=== PATIENT | female | born 1990 | race Caucasian/White ===

== ENCOUNTER → 2018-03-04 11:47 | Outpatient (CLI) | payer SELFPAY ==
[2018-03-04 15:08] LABS: Chlamydia Trachomatis by PCR Negative (Negative); Neisserai gonorrhoeae by PCR Negative (Negative); Probe Check PASS; Sample Adequacy Control PASS; Specimen Processing Control PASS
[2018-03-07 10:39] LABS: HPV Reflexed? NOT INDICATED
== END ==
PROVIDERS: Visit Provider Obstetrics & Gynecology
DX: Z12.4 Encounter for screening for malignant neoplasm of cervix (principal); Z11.3 Encounter for screening for infections with a predominantly sexual mode of transmission
CPT/HCPCS: 87491; 87591; 88175; G0145

== ENCOUNTER → 2018-04-06 15:24 | Outpatient (CLI) | payer SELFPAY ==
[2018-04-06 16:23] LABS: Color, Urine Yellow (Yellow); Glucose, Dipstick Normal (Normal); Ketone-Dipstick 5 mg/dl (Negative); Leukocyte Esterase-Dipstick 25 /ul (Negative); Nitrite-Dipstick Negative (Negative); Occult Blood-Urine Negative /ul (Negative); Protein-Dipstick 15 mg/dl (Negative); Specific Gravity, Urine 1.025 (1.002-1.030); Urine Bilirubin Dipstick Negative (Negative); Urine Clarity Turbid (Clear); Urine Urobilinogen Normal (Normal)
[2018-04-06 17:57] LABS: Absolute Neutrophil Count 7.3 X10^3/uL (2.0-7.7); Basophil# 0.03 X10^3/uL; Basophil% 0.3 % (0-1); Eosinophil# 0.11 X10^3/uL; Eosinophils% 1.1 % (0-5); Hematocrit 31.1 % (37-47); Hemoglobin 10.4 g/dl (12.0-15.0); Lymphocyte % 18.1 % (19-41); Mean Corp Hgb Conc 33.4 g/gl (32-36); Mean Corpuscular Hgb 31.5 pg (27.0-32.0); Mean Corpuscular Volume 94.2 fL (81-99); Mean Platelet Vol. 10.3 fl (6.2-12.0); Monocyte# 0.66 X10^3/uL; Monocyte% 6.7 % (0-10); Neutrophil # 7.28 X10^3/uL (2.7-7.7); Neutrophil % 73.4 % (47-70); Platelet Count 252 K/mm3 (150-450); RBC Distribution Width SD 43.3 fl (35.1-43.9); White Blood Count 9.9 K/mm3 (4.4-11.0)
[2018-04-06 18:00] LABS: Thyroid Stim Hormone (TSH) 1.25 uIU/mL (0.358-3.74)
[2018-04-06 18:19] LABS: POSITIVE COUNT NO; POSITIVE DIFFERENTIAL NO; POSITIVE MORPHOLOGY NO
[2018-04-07 09:47] LABS: HIV - WCH Non-Reactive (Nonreactive); Rubella IgG 1.2 IU/mL
[2018-04-08 09:35] LABS: HEPATITIS B SURFACE AG Negative (Negative); Hep C Antibodies <0.1 s/co ratio (0.0-0.9)
[2018-04-09 03:16] LABS: Prenatal RPR NONREACTIVE (NONREACTIVE)
== END ==
PROVIDERS: Visit Provider Obstetrics & Gynecology
DX: Z34.82 Encounter for supervision of other normal pregnancy, second trimester (principal)
CPT/HCPCS: 36415; 81002; 84443; 85025; 86703; 86762; 86803; 87340

== ENCOUNTER → 2018-06-22 09:05 | Outpatient (CLI) | payer OTHER, SELFPAY ==
[2018-06-22 11:02] LABS: Hematocrit 31.7 % (37-47); Hemoglobin 10.5 g/dl (12.0-15.0); Mean Corp Hgb Conc 33.1 g/gl (32-36); Mean Corpuscular Hgb 31.2 pg (27.0-32.0); Mean Corpuscular Volume 94.1 fL (81-99); Mean Platelet Vol. 9.6 fl (6.2-12.0); Platelet Count 244 K/mm3 (150-450); RBC Distribution Width CV 12.6 % (11.6-14.6); RBC Distribution Width SD 42.7 fl (35.1-43.9); Red Blood Count 3.37 M/mm3 (4.2-5.4); White Blood Count 8.8 K/mm3 (4.4-11.0)
[2018-06-22 11:10] LABS: Scan Indicated on CBC? Y/N NO
[2018-06-22 11:18] LABS: Glucose Challenge Gest 1H 50g 93 mg/dL (70-140)
== END ==
PROVIDERS: Visit Provider Obstetrics & Gynecology
DX: Z34.82 Encounter for supervision of other normal pregnancy, second trimester (principal)
CPT/HCPCS: 36415; 82950; 85027

== ENCOUNTER → 2018-08-11 14:00 | Outpatient (CLI) | payer SELFPAY ==
[2015-10-01 15:35] VITALS: BMI 24.2
== END ==
PROVIDERS: Visit Provider Obstetrics & Gynecology
DX: Z36.85 Encounter for antenatal screening for Streptococcus B (principal)
CPT/HCPCS: 87081

== ENCOUNTER 2018-09-10 07:05 | Inpatient (IN) | payer SELFPAY ==
[2018-09-10 07:10] VITALS: BMI 25.9
[2018-09-10] MEDS: Lactated Ringers 1,000 ML 50 ML IV (08:00)
[2018-09-10 08:14] LABS: Hematocrit 31.9 % (37-47); Hemoglobin 10.6 g/dl (12.0-15.0); Mean Corp Hgb Conc 33.2 g/gl (32-36); Mean Corpuscular Hgb 30.8 pg (27.0-32.0); Mean Corpuscular Volume 92.7 fL (81-99); Mean Platelet Vol. 10.9 fl (6.2-12.0); Platelet Count 192 K/mm3 (150-450); RBC Distribution Width CV 12.7 % (11.6-14.6); RBC Distribution Width SD 41.7 fl (35.1-43.9); Red Blood Count 3.44 M/mm3 (4.2-5.4); Scan Indicated on CBC? Y/N NO; White Blood Count 7.4 K/mm3 (4.4-11.0)
[2018-09-10] MEDS: Oxytocin 30 units/NS 500 ml 30 UNITS/500 ML IV.SOLN IV (08:15)
[2018-09-10] MEDS: Oxytocin 30 units/NS 500 ml 30 UNITS/500 ML IV.SOLN 334 UNITS IV (11:40)
--- NOTE | 2018-09-10 12:19 | PCM.DCVAG ---
Discharge Diet: No Restrictions Discharge Activity: May Shower, May Take a Tub Bath Return to work on:: 10/25/18 May resume sexual activity in: 4-6 weeks Additional Activity Instructions:: Nothing in the vagina for 4-6 weeks. You may return to work/school in 6 weeks. Additional Instructions: If you experience any of the following, contact your healthcare provider. Bleeding that soaks a pad every hour for 2 hours Fever 100.4 or higher Unrelieved abdominal pain Problems urinating (including inability to urinate or burning while urinating). Visual changes Severe headache Flu-like symptoms Pain or redness in one of both of your breasts Pain, warmth, tenderness or swelling in your legs, especially the calf area Frequent nausea and vomiting Symptoms of depression or anxiety If you experience any of the following, call 911 or go to the nearest Emergency Room. Chest pain Problems breathing Seizure activity Partial or complete paralysis of a body part, slurred speech, weakness or drooping of the face, or a sudden inability to walk or hold your balance Allergies/Adverse Reactions: Allergies No Known Allergies Allergy (Verified 10/01/15 15:48) Medications to take at Discharge Vits [Prenatabs FA] 1 tablet PO DAILY 10/01/15 Please Follow Up With: Norma Brewster MD - [phone] When: Call to make an appointment with your doctor in 6 weeks. Primary Care Physician: Kalyan Fraire MD [Primary Care Provider] - Test Results: Test results from this visit will be discussed in further detail at your follow-up appointment, if applicable. Proposed Discharge Date: 09/11/18
--- NOTE | 2018-09-10 12:21 | DCINST_ITS ---
Discharge Diet: No Restrictions Discharge Activity: May Shower, May Take a Tub Bath Return to work on:: 10/25/18 May resume sexual activity in: 4-6 weeks Additional Activity Instructions:: Nothing in the vagina for 4-6 weeks. You may return to work/school in 6 weeks. Additional Instructions: If you experience any of the following, contact your healthcare provider. * Bleeding that soaks a pad every hour for 2 hours * Fever 100.4 or higher * Unrelieved abdominal pain * Problems urinating (including inability to urinate or burning while urinating). * Visual changes * Severe headache * Flu-like symptoms * Pain or redness in one of both of your breasts * Pain, warmth, tenderness or swelling in your legs, especially the calf area * Frequent nausea and vomiting * Symptoms of depression or anxiety If you experience any of the following, call 911 or go to the nearest Emergency Room. * Chest pain * Problems breathing * Seizure activity * Partial or complete paralysis of a body part, slurred speech, weakness or drooping of the face, or a sudden inability to walk or hold your balance Allergies/Adverse Reactions: Allergies No Known Allergies Allergy (Verified 10/01/15 15:48) Medications to take at Discharge Vits [Prenatabs FA] 1 tablet PO DAILY 10/01/15 Please Follow Up With: Norma Brewster MD - [phone] When: Call to make an appointment with your doctor in 6 weeks. Primary Care Physician: Kalyan Fraire MD [Primary Care Provider] - Test Results: Test results from this visit will be discussed in further detail at your follow- up appointment, if applicable. Proposed Discharge Date: 09/11/18
--- NOTE | 2018-09-10 12:21 | PCM.OB.VAG ---
Vaginal Delivery Maternal Presentation: Medically Indicated Induction 41 1/7 wk EGA Method of Induction: Pitocin, Amniotomy Amniotic Membrane Rupture Type: Artificial Amniotic Fluid Description: Clear Final RILEY: 09/02/18 Final RILEY Source: US <20 weeks Gestational age: 41 Weeks and 1 Days Date of Procedure: 09/10/18 Pre-Operative Diagnosis: 41 1/7 wk induction postdates Post-Operative Diagnosis: same Surgery/ Procedure Performed: Spontaneous Vaginal Delivery Type of Anesthesia: None - nitrous oxide Description of Procedure: of a smith viable female over intact perineum. Head delivered [place]. Nuchal cord x one reduced. Shoulders delivered easily with maternal expulsive effort and Tl's maneuver. OP and nares bulb suctioned on perineum and after delivery. to maternal abdomen. Cord clamped x two and cut. Ap 8/9 PP exam: no lacerations noted Placenta delivered by spont expulsion 3V cord, normal appearing, intact with trailing membranes. EBL 400 cc Pt and tolerated delivery well. Ray Eric counts correct x two. Presentation: Vertex, [place] Placental Delivery Description: Spontaneous Placenta Disposition: [facility] Cord Vessel Description: 3 Vessels Nuchal Cord Compression: Without compression Cord Entanglement: Around neck x 1, loose Estimated Blood Loss: 400 Infant A gender: Female (1 minute): 8 (5 minute): 9 Episiotomy Description: None Laceration: None
[2018-09-10] MEDS: Ibuprofen 600 MG Tablet PO (14:52)
[2018-09-10 16:00] VITALS: BP 109/68; PULSE 72; RESP 16; TEMP 36.5
[2018-09-10 20:29] VITALS: BP 101/65; PULSE 82; RESP 18; TEMP 36.8
[2018-09-10 23:30] VITALS: BP 117/63; PULSE 81; RESP 18; TEMP 36.8
[2018-09-11 03:50] VITALS: BP 103/66; PULSE 71; RESP 18; TEMP 36.5
[2018-09-11 08:31] VITALS: BP 104/65; PULSE 78; RESP 16; TEMP 36.7; O2SAT 96
--- NOTE | 2018-09-11 08:31 | PCM.PN.OB ---
Subjective: Has cramping with nursing, alleviated with pain medication. OOB with no complaints. Denies heavy lochia. She is and infant nursing well. Objective: avss - Physical Exam General: Alert, Oriented x3, Cooperative, No apparent distress HEENT: Atraumatic, Normocephalic Lungs: Clear to auscultation, Normal air movement Cardiovascular: Regular rate, Regular Rhythm, Normal S1, Normal S2 Abdomen: Soft, Non Tender, Non-Distended, - - Fundus firm and nontender Neurological: Neuro grossly intact Psych/Mental Status: Normal Affect, Appropriate, Alert and oriented to time, place, person, mood and affect Vital Signs Temp Pulse Resp BP 97.7 F L 71 18 103/66 09/11/18 03:50 09/11/18 03:50 09/11/18 03:50 09/11/18 03:50 Oxygen Delivery Method Room Air Weight: 68.6 kg Body Mass Index (BMI) 25.9 Intake and Output for Last 24 Hours 09/09/18 09/10/18 09/11/18 23:59 23:59 23:59 Intake Total 500 / 500 Output Total 1400 / 1400 Balance -900 / -900 Laboratory Tests Past 24 Hrs 09/10/18 08:00 Blood Type B POSITIVE Antibody Screen NEGATIVE Medical Necessity - Tobacco Use Smoking Status: Never smoker Assessment/Plan 28yo PPD#1 s/p doing well. -B positive, Rubella nonimmune - declines Rubella vaccine - -Routine care -Plan for d/c home later today if infant cleared
[2018-09-11] MEDS: Ibuprofen 600 MG Tablet PO (08:57)
[2018-09-11] MEDS: Prenatal Vits Tablet 1 TABLET PO (08:58)
[2018-09-11 12:00] VITALS: BP 98/59; PULSE 82; RESP 16; TEMP 37.2; O2SAT 95
[2018-09-11 16:31] VITALS: BP 98/56; PULSE 81; RESP 16; TEMP 36.9; O2SAT 97
== END 2018-09-11 17:15 | disposition home or self-care (01) | DRG 807 ==
PROVIDERS: Admitting Provider Obstetrics & Gynecology; Referring Provider Obstetrics & Gynecology; Visit Provider Obstetrics & Gynecology
DX: O48.0 Post-term pregnancy (principal); Z37.0 Single live birth; O35.3XX0 Maternal care for (suspected) damage to fetus from viral disease in mother, not applicable or unspecified; O69.81X0 Labor and delivery complicated by cord around neck, without compression, not applicable or unspecified; Z3A.41 41 weeks gestation of pregnancy
CPT/HCPCS: 59050; 85027; 86850; 86900; 99218; J7120; G0378

== ENCOUNTER → 2020-05-22 10:29 | Outpatient (CLI) | payer SELFPAY ==
[2020-05-22 11:55] LABS: Absolute Lymphocyte Count 1.88 X10^3/uL (0.83-4.51); Absolute Neutrophil Count 6.4 X10^3/uL (2.0-7.7); Basophil# 0.04 X10^3/uL; Basophil% 0.4 % (0-1); Eosinophils% 1.1 % (0-5); Hematocrit 32.6 % (37-47); Lymphocyte # 1.88 X10^3/ul (4.0); Lymphocyte % 20.6 % (19-41); Mean Corp Hgb Conc 33.7 g/dL (32-36); Mean Corpuscular Hgb 33.2 pg (27.0-32.0); Mean Corpuscular Volume 98.5 fL (81-99); Monocyte# 0.63 X10^3/uL; Monocyte% 6.9 % (0-10); NRBC Flagged by Analyzer 0 % (0-5); Neutrophil # 6.43 X10^3/uL (2.7-7.7); Neutrophil % 70.5 % (47-70); Platelet Count 231 K/mm3 (150-450); RBC Distribution Width CV 13.3 % (11.6-14.6); RBC Distribution Width SD 47.7 fl (35.1-43.9); Red Blood Count 3.31 M/mm3 (4.2-5.4); White Blood Count 9.1 K/mm3 (4.4-11.0)
[2020-05-22 12:09] LABS: Color, Urine Straw (Yellow); Glucose, Dipstick Normal (Normal); Ketone-Dipstick Negative (Negative); Leukocyte Esterase-Dipstick Negative /ul (Negative); Nitrite-Dipstick Negative (Negative); Occult Blood-Urine Negative /ul (Negative); Protein-Dipstick Negative (Negative); Urine Bilirubin Dipstick Negative (Negative); Urine Clarity Clear (Clear); Urine Urobilinogen Normal (Normal)
[2020-05-22 12:41] LABS: HIV - WCH Non-Reactive (Nonreactive); Hepatitis B Surface Antigen Non-Reactive (Nonreactive); Hepatitis C Antibody Non-Reactive (Nonreactive); Rubella IgG 0.6 IU/mL
[2020-05-22 14:36] LABS: Thyroid Stim Hormone (TSH) 1.06 uIU/mL (0.358-3.74)
[2020-05-24 03:06] LABS: Chlamydia By Nucleic Acid AMP Negative (Negative)
[2020-05-24 06:28] LABS: Prenatal RPR NONREACTIVE (NONREACTIVE)
[2020-05-24 06:31] LABS: Gonococcus By Nucleic Acid AMP Negative (Negative)
== END ==
PROVIDERS: Visit Provider Obstetrics & Gynecology
DX: Z34.81 Encounter for supervision of other normal pregnancy, first trimester (principal)
CPT/HCPCS: 36415; 81002; 84443; 85025; 86703; 86762; 86803; 87340; 87491; 87591

== ENCOUNTER → 2020-07-17 09:15 | Outpatient (CLI) | payer SELFPAY ==
[2020-07-17 09:46] LABS: Hematocrit 32.8 % (37-47); Hemoglobin 10.6 g/dL (12.0-15.0); Mean Corp Hgb Conc 32.3 g/dL (32-36); Mean Corpuscular Hgb 31.5 pg (27.0-32.0); Mean Corpuscular Volume 97.3 fL (81-99); Mean Platelet Vol. 9.4 fl (6.2-12.0); Platelet Count 189 K/mm3 (150-450); RBC Distribution Width CV 12.3 % (11.6-14.6); RBC Distribution Width SD 44.1 fl (35.1-43.9); Red Blood Count 3.37 M/mm3 (4.2-5.4); White Blood Count 8.3 K/mm3 (4.4-11.0)
[2020-07-17 09:50] LABS: Glucose Challenge Gest 1H 50g 86 mg/dL (70-140)
== END ==
PROVIDERS: Visit Provider Obstetrics & Gynecology
DX: Z34.82 Encounter for supervision of other normal pregnancy, second trimester (principal)
CPT/HCPCS: 36415; 82950; 85027

== ENCOUNTER → 2020-09-18 | Outpatient (CLI) | payer OTHER, SELFPAY | END | disposition home or self-care (01) | PROVIDERS: Visit Provider Obstetrics & Gynecology | DX: Z36.85 Encounter for antenatal screening for Streptococcus B (principal) | CPT/HCPCS: 87081 ==

== ENCOUNTER 2020-10-10 13:45 | Inpatient (IN) | payer SELFPAY, OTHER ==
[2020-10-10] VITALS (16 sets, daily range): BP systolic 104–128; BP diastolic 55–82; PULSE 69–88; RESP 16; TEMP 36.7–37.7; O2SAT 97–98; BMI 28.8
[2020-10-10] MEDS: Lactated Ringers 1,000 ML 50 ML IV (14:30)
[2020-10-10 14:40] LABS: Absolute Lymphocyte Count 1.54 X10^3/uL (0.83-4.51); Absolute Neutrophil Count 7.4 X10^3/uL (2.0-7.7); Basophil# 0.04 X10^3/uL; Basophil% 0.4 % (0-1); Eosinophil# 0.04 X10^3/uL; Eosinophils% 0.4 % (0-5); Hematocrit 33.2 % (37-47); Hemoglobin 11.5 g/dL (12.0-15.0); Lymphocyte # 1.54 X10^3/ul (4.0); Lymphocyte % 15.8 % (19-41); Mean Corp Hgb Conc 34.6 g/dL (32-36); Mean Corpuscular Hgb 32.4 pg (27.0-32.0); Mean Corpuscular Volume 93.5 fL (81-99); Mean Platelet Vol. 9.9 fl (6.2-12.0); Monocyte# 0.67 X10^3/uL; Monocyte% 6.9 % (0-10); NRBC Flagged by Analyzer 0 % (0-5); Platelet Count 199 K/mm3 (150-450); RBC Distribution Width CV 12.7 % (11.6-14.6); RBC Distribution Width SD 43.9 fl (35.1-43.9); Red Blood Count 3.55 M/mm3 (4.2-5.4); White Blood Count 9.7 K/mm3 (4.4-11.0)
[2020-10-10] MEDS: Oxytocin 30 units/NS 500 ml 30 UNITS/500 ML IV.SOLN 334 UNITS IV (18:10)
--- NOTE | 2020-10-10 18:24 | PCM.HP.BLA ---
History and Physical Date of Admission: 10/10/20 [facility] [place] AND PHYSICAL (10/10/2020) Name: MARY PERDOMOHER History of This : This is a 30-year-old G4, P3 who presents to labor and delivery in active labor at 40 weeks gestation. care has been uneventful. OB Physician: KAY 's Physician: [facility] ...................................................................... : 1990 Age: 30 Address: [address] [place] [address] Phone: [phone] Insurance Carrier: Emergency Contact: GISELE PERDOMO [phone] ...................................................................... Final RILEY: 10/10/20 By Ultrasound: PARITY: (G-Total Pregnancies P-Fullterm,Premature,Induced AB,Spont AB, Ectopics, Multiple,Living) RILEY CONFIRMATION: By LMP: 01/04/20 Initial Exam: 10/11/20 By First Ultrasound Exam: 10/10/20 Final RILEY: 10/10/20 OB PROBLEM LIST: AFP/CF/SMA screening declined EPDS on 05/22/2020 = 3 FOB with h/o heart defect, congenital No surgical intervention Late to care Prefers no epidural, wants Nitrous Oxide Rubella NONIMMUNE ALLERGIES: No Known Drug Allergies MEDICATIONS: ferrous sulfate 325 mg (65 mg iron) tablet 1 PO QD 28 mg iron-800 mcg tablet 1 daily SOCIAL HISTORY: Smoking - Never Alcohol Use - denies drinking Diet - moderate, balanced diet, caffeine < 2 drinks per day and water intake tries for 6-8 glasses daily. Lifestyle - low stress lifestyle and Exercise - Active in home, garden, mowing. Enc to walk 20min daily. Employer - [employer] Job Description - Illicit Drug Use - denies use of street drugs Sexual Activity - Residence - lives with Place [place] - [place] Spouse-Sig Other Name - Gisele Spouse-Sig Other Occupation - self employed installs catie. Spouse-Sig Other Phone No - [phone] Children Name(s) - Kyle Cortes (LORETTA)Susu PRIOR DELIVERY HISTORY DEL DATE GEST LAB WT LB WT OZ TYPE ANES LABOR TX Oct 06 40 12 7 11 Vag None No May 04 40 8 6 15 Vag None No Sep 07 41 4 7 11 Vag Epidural No ANTEPARTUM FLOW CHART VISIT GE RTC FU F F WY U U DATE WK MD WKS HT PN HR M SS BP ED WT WY GL D EF ST __ ____ ___ __ __ ___ __ __ __ ___ __ __ __ ___ __ 12 Sep JM 1 38 V + + 130/70 0 152 - - 2 50 -3 05 Sep JM 1 37 V + + 102/68 0 151 tr - Aug JM 1 36 V + + 100/74 0 153 - - Aug JM 2 34 V + + 112/68 0 148 tr ne Jul JM 2 32 V + + 100/60 0 147 - - 27 Jul 17 JM 2 27 - + + 92/58 0 142 - - May 23 CM 4 24 + + 122/68 0 139 - - ANTEPARTUM NOTE(S): Oct 02 2020: reviewed FM, SROM, and labor Sep 25 2020: feeling well Sep 18 2020: GBS and LARC Sep 03 2020: Aug 20 2020: see note Jul 17 2020: Jun 19 2020: COMPREHENSIVE ANTEPARTUM NOTE(S): Oct 02 2020: Interested in cervix ck, membranes stripped. Feeling more pressure and contractions. Reviewed importance of keeping track of mvmt. Labor and SROM reviewed. LMT Oct 02 2020: 38wk, 2cm. Sweeped membranes. Discussed 41wk induction, will consider scheduling at next visit. MEIR Sep 26 2020: H taken to OB. tkg Sep 25 2020: Reviewed FM, SROM, and labor. Discomforts of late discussed. She reports feeling well and without concerns today. LMT Sep 25 2020: 37wk, GBS neg. Sister is Jolene who is 16wks . No complaints. Expectant management. Sep 18 2020: Marie is here for a PNV. Good FM. No edema present. No concerns expressed at this time. GBS and LARC today. GBS consent signed. LARC reviewed and declined. MK Sep 18 2020: 36wk, GBS collected today. JM Sep 03 2020: Chelly is here for PNV. States she is doing really well with no complaints. Eating well. Good FM. No edema noted. Urine dipped tr and neg. LSS Sep 03 2020: 34wk, for GBS at next visit. JM Aug 20 2020: Doing well, no complaints. Encouraged Tdap and Influenza vaccine. Reviewed FM, PTL. All prior pregnancies were term deliveries. Asking about nitrous at the L and D. LMT Aug 20 2020: 32wk, 1hr GTT wnl. JM Jul 17 2020: Marie is here for her PNV. Doing well. Good FM. No concerns or complaints expressed today. She had 1 hr GCT drawn today. Medications and allergies reviewed today. LJW Jul 17 2020: 27wk, for 1hr GTT today. MEIR Jun 19 2020: Doing well. Good FM. Voicing no concerns. Glucola bottle and instructions given to be done next visit. kbm Jun 19 2020: 23/6w visit. Denies LOF, VB, contractions. +FM. No concerns today. FOB had hx of heart murmur that resolved on its own, no interventions. No need for ECHO. May 29 2020: TELEHEALTH NOB VISIT. 25 MINUTES IN LENGTH. Marie is a 29 year old with an RILEY of 10/01/2020, current GA is 20 w 6 d. 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 She reports that she is feeling well, and that the nausea she experienced in her first trimester has resolved. She states that she feels FM. Marie is an established patient with this practice, and has no questions about office practice patterns. 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 Emergencies/danger signs, how to contact the office during/after hours, reporting a suspected UTI, round ligament pain, and common OTC medications for minor ailments approved/not approved for use during reviewed. She is a life long non-smoker, and denies use of drugs or ETOH. AFP/CF/SMA screening declined. Marie denies a h/o depression/anxiety, and her EPDS on 05/22/2020 = 3. She shares that the summer has been a little stressful, mostly because her has become a aircraft systems repairer in their [employer]. Marie takes an OTC vitamin, and tolerates this well. She takes her children on walks every day, and works around her house/yard. lifting restrictions discussed. She states that she tries to eat an over all well-balanced diet, is working on increasing her water intake, and only occasionally consumes caffeine. water/dietary/caloric needs discussed, as well as recommended weight gain,limiting empty calories, and food safety during . Marie plans to deliver at [facility], she prefers not to have an epidural, but would like Nitrous Oxide, and she will breastfeed. She states that she understands all information provided during NOB visit, and has no questions following same. AW New May 22 2020: Marie is here for missed menses. LMP 01/04/20. UPT in office positive she is 19w 6 d with RILEY of 10/10/20. PAP 2018 WNL. pkt reviewed and given today. NOB pkt reviewed and given today. Medications and allergies reviewed today. No questions or concerns expressed today. LJW May 22 2020: Missed menses today with +UPT. LMP known of 01-04-20. This would give her a GA 19w6d and RILEY 10-11-20. Now a (f,m,f,f*). Kyle Cortes and Susu. Had her last two deliveries with Dr. Watts Reoriented to practice with 2 new MDs present. CNM care with OB collaboration discussed. Head to toe negative. Will get Comp US today with NOB labs. Last pap 2018, due 2020 PP. NOB paperwork filled out today, declining genetic screening and EPDS=3. US Today reveals RILEY consistent with LMP. Female fetus, AGA at EFW 52nd%, all anatomy visualized and WNL. Reviewed [facility] Covid protocols and will need a negative covid test to be able to use nitrous oxide which is her pain management option of choice. Has no other questions or concerns. To get NOB RN call scheduled and to return in 4 weeks for routine PNV. - REVIEW OF SYSTEMS: GENERAL - Denies fever, or chills SKIN - Denies rash, new skin lesions, or change in moles EYES - Denies blurred vision, or change in visual acuity EARS - Denies ear pain, or difficulty hearing NOSE - Denies nasal congestion, discharge, or bleeding MOUTH - Denies sore throat, or difficulty swallowing NECK - Denies pain or swelling RESPIRATORY - Denies shortness of breath, cough, wheezing CARDIOVASCULAR - Denies palpitations, chest pain, orthopnea, PND, peripheral edema, syncope or claudication GASTROINTESTINAL - Denies nausea, vomiting, diarrhea, constipation, Denies abdominal pain, melena and or bright red blood GENITOURINARY - Denies dysuria, frequency of urination, urgency, or hesitancy MUSCULOSKELETAL - Denies joint or muscle pain, or back pain NEUROLOGICAL - Denies localized numbness, weakness, or tingling PSYCHIATRIC - Denies depression, anxiety, substance abuse or suicide attempts ENDOCRINE - Denies heat or cold intolerance, weight loss or gain, increasing thirst HEMATO-IMMUNOLOGIC - Denies easy bruising, bleeding, oral ulcerations or recurrent infections GENETICS SCREENING: Age 35+ years: No Thalassemia: No Neural Tube Defect: No Down Syndrome: No LORENZO-SACHS: No Sickle Cell Disease: No Hemophilia: No Musc. Dystrophy: No Cystic Fibrosis: No-declines screening [place] Chorea: No Mental Retardation: No Fragile X: No Other genetic: No Other defects: No SABs/still births: No Drugs since LMP: No INFECTION HISTORY: High risk AIDS: No High risk Hepatitis: No Exposed to TB: No Exposed to Herpes: No Rash/viral illness since LMP: No History of STD: No MENSTRUAL HISTORY: *Menarche (Age Onset): 14* PAST SUMMARY: PARITY: 1. Total Pregnancies............ 4 2. Full Term Pregnancies........ 3 3. Premature.................... 0 4. Abortions - Induced.......... 0 5. Abortions - Spontaneous...... 0 6. Ectopics..................... 0 7. Multiple Births.............. 0 8. Living Children.............. 3 PAST #1: Date of :.................. 05/11/14 Gestation Weeks:................ 40 Length of labor(hours):......... 8 Sex:............................ F Weight-lbs:............... 6 Weight-oz:................ 15 Type of Delivery:............... Vag Type of Anesthesia:............. None Place of Delivery:.............. [facility] Treatment of Labor?:.... No Comment: ANEMIA PAST #2: Date of :.................. 10/01/15 Gestation Weeks:................ 40 Length of labor(hours):......... 12 Sex:............................ M Weight-lbs:............... 7 Weight-oz:................ 11 Type of Delivery:............... Vag Type of Anesthesia:............. None Place of Delivery:.............. [facility] Treatment of Labor?:.... No Comment: 3 H AT THE HOSPITAL. PAST #3: Date of :.................. 09/10/18 Gestation Weeks:................ 41 Length of labor(hours):......... 4 Sex:............................ F Weight-lbs:............... 7 Weight-oz:................ 11 Type of Delivery:............... Vag Type of Anesthesia:............. Epidural Place of Delivery:.............. [facility] Treatment of Labor?:.... No Comment: IOL PHYSICAL EXAMINATION General Appearence: 30 yo female in no acute distress Vital Signs: AF, VSS Heart: RRR without rubs or gallops Lungs: CTA x 2 Breasts: deferred Abdomen: gravid Pelvis: Cervix: 6 cm, 60% effaced intact Presentation: cephalic Station: -2 Fetus: Size: AGA Movement: present Heart: present Labs for : MARIE PERDOMO since 01/14/2020 ORDER DATEIN DESCRIPTION VALUE UNITS RANGE A+ COMMENT TYPE AND SCREEN 10/10/20 Reason for Type AND Screen/Red Cells: Labor [facility]~[address] [place], [address]~ BLOOD TYPE GEL B POSITIVE N ANTIBODY SCREEN NEGATIVE N Reviewed by LILLY CBC W/DIFF, AUTOMATED 10/10/20 NOTE Original Ordering Provider: Branden Matthew WBC 9.7 K/mm3 4.4-11.0 RBC 3.55 M/mm3 4.2-5.4 L HGB 11.5 g/dL 12.0-15.0 L HCT 33.2 % 37-47 L MCV 93.5 fL 81-99 MCH 32.4 pg 27.0-32.0 H MCHC 34.6 g/dL 32-36 RDW CV 12.7 % 11.6-14.6 RDW SD 43.9 fl 35.1-43.9 PLT 199 K/mm3 150-450 MPV 9.9 fl 6.2-12.0 NEUT% 76.0 % 47-70 H LY% 15.8 % 19-41 L MONO% 6.9 % 0-10 EO% 0.4 % 0-5 BASO% 0.4 % 0-1 IM GRAN % 0.500 % 0.0-0.9 IG% - Immature Granulocytes (promyelocytes, myelocytes and metamyelocytes) > 1% indicates that a LEFT SHIFT is Present. ABSOLUTE NEUT 7.4 X10 3/uL 2.0-7.7 ABSOLUTE LYMPH 1.54 X10 3/uL 0.83-4.51 NRBC, FLAGGED 0 % 0-5 Reviewed by LILLY COVID 19 AG RAPID (RN COLLECT) 10/10/20 NOTE Original Ordering Provider: Branden Matthew COVID AG -RAPID *Negative results from patients with symptom onset beyond five days should be treated as presumptive and confirmed by a molecular assay if clinically necessary. Negative results should not be used as the sole basis for treatment or for patient management. *Positive results do not differentiate between SARS-CoV and SARS-CoV-2. If differentation of the specific SARS virus is desired an additional sample and an additional order is required. * This test has not been FDA cleared or approved; the test has been authorized by FDA under an Emergency Use Authorization (EAU) for use by laboratories certified under CLIA that meet the requirements to perform moderate, high, or waived complexity tests. Normal Reference Range: Negative Testing performed on Remote[employer] analyzer VANDANA (lateral flow immunofluorescent assay) SARS-CoV-2 (COVID 19) Negative CULTURE, GROUP B STREPTOCOCCUS 09/18/20 NOTE Original Ordering Provider: Lilly Perdomo ALFIE Culture Group B Beta Streptococcus is not isolated. Reviewed by LILLY GLUCOSE CHALLENGE GEST 1H 50G 07/17/20 NOTE Original Ordering Provider: Lilly Perdomo GLU GEST 50G 1H 86 mg/dL 70-140 Reviewed by LILLY CBC-COMPLETE BLOOD CNT NO DIFF 07/17/20 NOTE Original Ordering Provider: Lilly Perdomo WBC 8.3 K/mm3 4.4-11.0 RBC 3.37 M/mm3 4.2-5.4 L HGB 10.6 g/dL 12.0-15.0 L HCT 32.8 % 37-47 L MCV 97.3 fL 81-99 MCH 31.5 pg 27.0-32.0 MCHC 32.3 g/dL 32-36 RDW CV 12.3 % 11.6-14.6 RDW SD 44.1 fl 35.1-43.9 H PLT 189 K/mm3 150-450 MPV 9.4 fl 6.2-12.0 Reviewed by LILLY CHLAMYDIA/GC SUZANNE APTIMA 05/22/20 NOTE Original Ordering Provider: MICKIE RILEYAMY,NUC ACID Negative Negative GC BY NUC ACID Negative Negative Performed at: = - [facility] [address] [id number] Bit Sander: Mari Garcia MD, Phone: [phone] Reviewed by RALPH RPR 05/22/20 NOTE Original Ordering Provider: MICKIE Hope RPR NONREACTIVE NONREACTIVE Reviewed by RALPH THYROID STIM HORMONE (TSH) 05/22/20 NOTE Original Ordering Provider: MICKIE Hope TSH 1.06 uIU/mL 0.358-3.74 Reviewed by RALPH T AND S-NO CHARGE W/PNP 05/22/20 Reason for Type AND Screen/Red Cells: Surgery? N [facility]~[address] [place], [address]~ BLOOD TYPE GEL B POSITIVE N AB SCREEN GEL NEGATIVE N Reviewed by RALPH HEPATITIS C ANTIBODY 05/22/20 NOTE Original Ordering Provider: MICKIE Hope HEPATITIS C AB Non-Reactive Nonreactive Non Reactive: < 0.8 Equivocal: >/= 0.8 to < 1.0 Reactive: >/= 1.0 The CDC recommends that a reactive/equivocal HCV antibody result be followed up by the HCV Nucleic Acid Amplification test ([id number]) Reviewed by RALPH HEPATITIS B SURFACE ANTIGEN 05/22/20 NOTE Original Ordering Provider: MICKIE Hope HEPB SURFACE AG Non-Reactive Nonreactive Reviewed by RALPH HIV - H 05/22/20 NOTE Original Ordering Provider: MICKIE Hope HIV - [facility] Non-Reactive Nonreactive Reviewed by RALPH RUBELLA IGG 05/22/20 NOTE Original Ordering Provider: MICKIE Hope RUBELLA IGG 0.6 IU/mL Antibody results Interpretation of Immune Status < 5 IU/ml Presumed Non-immune 5 - < 10 IU/ml Equivocal > or = 10 IU/ml Presumed Immune Reviewed by RALPH URINALYSIS, ROUTINE (DIPSTICK) 05/22/20 NOTE Original Ordering Provider: MICKIE Hope COLOR Straw Yellow CLARITY Clear Clear GLUCOSE, UR Normal mg/dl Normal BILIRUBIN URINE Negative mg/dL Negative KETONE UR Negative mg/dl Negative SP.GR. DIPSTX 1.010 1.002-1.030 PH UR 8.0 5.0 - 8.0 PROT DIPSTX Negative mg/dl Negative UROBILI Normal mg/dl Normal NITRITE UR Negative Negative OCCULT BLOOD-UR Negative /ul Negative LEUK ESTERASE Negative /ul Negative Reviewed by RALPH CBC W/DIFF, AUTOMATED 05/22/20 NOTE Original Ordering Provider: MICKIE Hope WBC 9.1 K/mm3 4.4-11.0 RBC 3.31 M/mm3 4.2-5.4 L HGB 11.0 g/dL 12.0-15.0 L HCT 32.6 % 37-47 L MCV 98.5 fL 81-99 MCH 33.2 pg 27.0-32.0 H MCHC 33.7 g/dL 32-36 RDW CV 13.3 % 11.6-14.6 RDW SD 47.7 fl 35.1-43.9 H PLT 231 K/mm3 150-450 MPV 10.0 fl 6.2-12.0 NEUT% 70.5 % 47-70 H LY% 20.6 % 19-41 MONO% 6.9 % 0-10 EO% 1.1 % 0-5 BASO% 0.4 % 0-1 IM GRAN % 0.500 % 0.0-0.9 IG% - Immature Granulocytes (promyelocytes, myelocytes and metamyelocytes) > 1% indicates that a LEFT SHIFT is Present. ABSOLUTE NEUT 6.4 X10 3/uL 2.0-7.7 ABSOLUTE LYMPH 1.88 X10 3/uL 0.83-4.51 NRBC, FLAGGED 0 % 0-5 Reviewed by RALPH Impression /Plan: 40-week intrauterine in labor. Plan rupture of membranes. Preparations in progress for delivery.
--- NOTE | 2020-10-10 18:26 | OP.PCM_ITS ---
Vaginal Delivery Maternal Presentation: Active Labor Amniotic Membrane Rupture Type: Artificial Amniotic Fluid Description: Clear Final RILEY: 10/10/20 Gestational age: 40 Weeks and 0 Days Date of Procedure: 10/10/20 Pre-Operative Diagnosis: IUP Post-Operative Diagnosis: IUP Surgery/ Procedure Performed: Spontaneous Vaginal Delivery Type of Anesthesia: None Description of Procedure: Spontaneous vaginal delivery of a viable female infant with Apgars of 9/9 from an occiput anterior presentation with clear amniotic fluid and normal three- vessel placenta. No episiotomy or laceration. Banjo curette used x3 gentle passes to remove adherent placenta. Ancef 1 g IV will be given. Sponges okay. Delivery physician: Branden Matthew MD. Presentation: Vertex Placental Delivery Description: Spontaneous Placenta Disposition: [facility] Cord Vessel Description: 3 Vessels Cord Entanglement: None Estimated Blood Loss: 250 cc Infant A gender: Female (1 minute): 9 (5 minute): 9 Episiotomy Description: None Laceration: None Medications given after delivery: IV Pitocin Complications: None
--- NOTE | 2020-10-10 18:29 | DCINST_ITS ---
<Branden Matthew - Last Filed: 10/10/20 18:29> Discharge Diet: No Restrictions Discharge Activity: May Shower, May Take a Tub Bath May resume sexual activity in: 4-6 weeks Additional Activity Instructions:: Nothing in the vagina for 4-6 weeks. You may return to work/school in 6 weeks. Call your doctor if you observe: Fever of 101 or Higher, Inability to urinate, Inability to have a bowel movement, Using more than one pad per hour Additional Instructions: If you experience any of the following, contact your healthcare provider. * Bleeding that soaks a pad every hour for 2 hours * Fever 100.4 or higher * Unrelieved incision or abdominal pain * Swelling, redness, discharge or bleeding from your incision or episiotomy site * Your incision begins to separate * Problems urinating (including inability to urinate or burning while urinating). * Visual changes * Severe headache * Flu-like symptoms * Pain or redness in one of both of your breasts * Pain, warmth, tenderness or swelling in your legs, especially the calf area * Frequent nausea and vomiting * Symptoms of depression or anxiety If you experience any of the following, call 911 or go to the nearest Emergency Room. * Chest pain * Problems breathing * Seizure activity * Partial or complete paralysis of a body part, slurred speech, weakness or drooping of the face, or a sudden inability to walk or hold your balance Allergies/Adverse Reactions: Allergies No Known Allergies Allergy (Verified 10/01/15 15:48) Medications to take at Discharge Vits [Prenatabs FA] 1 tablet PO DAILY 10/01/15 Please Follow Up With: Jose Mccarthy MD - [phone] When: Call to make an appointment with your doctor in 6 weeks. Primary Care Physician: Kalyan Fraire MD [Primary Care Provider] - Test Results: Test results from this visit will be discussed in further detail at your follow- up appointment, if applicable. <Jose Mccarthy - Last Filed: 10/11/20 07:40> Additional Instructions: If you experience any of the following, contact your healthcare provider. * Bleeding that soaks a pad every hour for 2 hours * Fever 100.4 or higher * Unrelieved incision or abdominal pain * Swelling, redness, discharge or bleeding from your incision or episiotomy site * Your incision begins to separate * Problems urinating (including inability to urinate or burning while urinating). * Visual changes * Severe headache * Flu-like symptoms * Pain or redness in one of both of your breasts * Pain, warmth, tenderness or swelling in your legs, especially the calf area * Frequent nausea and vomiting * Symptoms of depression or anxiety If you experience any of the following, call 911 or go to the nearest Emergency Room. * Chest pain * Problems breathing * Seizure activity * Partial or complete paralysis of a body part, slurred speech, weakness or drooping of the face, or a sudden inability to walk or hold your balance Test Results: Test results from this visit will be discussed in further detail at your follow- up appointment, if applicable.
--- NOTE | 2020-10-10 18:29 | PCM.DCVAG ---
<Branden Matthew - Last Filed: 10/10/20 18:29> Discharge Diet: No Restrictions Discharge Activity: May Shower, May Take a Tub Bath May resume sexual activity in: 4-6 weeks Additional Activity Instructions:: Nothing in the vagina for 4-6 weeks. You may return to work/school in 6 weeks. Call your doctor if you observe: Fever of 101 or Higher, Inability to urinate, Inability to have a bowel movement, Using more than one pad per hour Additional Instructions: If you experience any of the following, contact your healthcare provider. Bleeding that soaks a pad every hour for 2 hours Fever 100.4 or higher Unrelieved incision or abdominal pain Swelling, redness, discharge or bleeding from your incision or episiotomy site Your incision begins to separate Problems urinating (including inability to urinate or burning while urinating). Visual changes Severe headache Flu-like symptoms Pain or redness in one of both of your breasts Pain, warmth, tenderness or swelling in your legs, especially the calf area Frequent nausea and vomiting Symptoms of depression or anxiety If you experience any of the following, call 911 or go to the nearest Emergency Room. Chest pain Problems breathing Seizure activity Partial or complete paralysis of a body part, slurred speech, weakness or drooping of the face, or a sudden inability to walk or hold your balance Allergies/Adverse Reactions: Allergies No Known Allergies Allergy (Verified 10/01/15 15:48) Medications to take at Discharge Vits [Prenatabs FA] 1 tablet PO DAILY 10/01/15 Please Follow Up With: Jose Mccarthy MD - [phone] When: Call to make an appointment with your doctor in 6 weeks. Primary Care Physician: Kalyan Fraire MD [Primary Care Provider] - Test Results: Test results from this visit will be discussed in further detail at your follow-up appointment, if applicable. <Jose Mccarthy - Last Filed: 10/11/20 07:40> Additional Instructions: If you experience any of the following, contact your healthcare provider. Bleeding that soaks a pad every hour for 2 hours Fever 100.4 or higher Unrelieved incision or abdominal pain Swelling, redness, discharge or bleeding from your incision or episiotomy site Your incision begins to separate Problems urinating (including inability to urinate or burning while urinating). Visual changes Severe headache Flu-like symptoms Pain or redness in one of both of your breasts Pain, warmth, tenderness or swelling in your legs, especially the calf area Frequent nausea and vomiting Symptoms of depression or anxiety If you experience any of the following, call 911 or go to the nearest Emergency Room. Chest pain Problems breathing Seizure activity Partial or complete paralysis of a body part, slurred speech, weakness or drooping of the face, or a sudden inability to walk or hold your balance Test Results: Test results from this visit will be discussed in further detail at your follow-up appointment, if applicable.
[2020-10-10] MEDS: 0.9% Saline Lock 10 ML Syringe IV (20:46)
[2020-10-11] VITALS (9 sets, daily range): BP systolic 101–117; BP diastolic 58–66; PULSE 75–88; RESP 16; TEMP 36.6–37.2; O2SAT 98
--- NOTE | 2020-10-11 07:39 | PN.OBGYN_ITS ---
Subjective: No overnight complaints. Pain well controlled. - Physical Exam Vitals/I&O's: Vital Signs Temp Pulse Resp BP Pulse Ox 99.0 F 79 16 108/58 L 98 10/11/20 05:46 10/11/20 05:46 10/11/20 05:46 10/11/20 05:46 10/11/20 05:46 Oxygen Delivery Method Room Air Weight: 152 lb 8.958 oz Body Mass Index (BMI) 28.8 Intake and Output for Last 24 Hours 10/09/20 10/10/20 10/11/20 23:59 23:59 23:59 Intake Total 783.33 / 783.33 Output Total 1000 / 1000 Balance -216.67 / -216.67 General: Alert, Oriented x3, Cooperative HEENT: Atraumatic, PERRLA Oral: Moist Mucosa Neck: Supple Abdomen: Soft, Non Tender, - - Fundus firm and below umbilicus Extremities: No clubbing, No cyanosis, No edema Neurological: Neuro grossly intact Psych/Mental Status: Normal Affect, Appropriate, Alert and oriented to time, place, person, mood and affect Microbiology Past 72 Hours 10/10/20 14:00 Mucosa - Nose SARS-CoV-2 Antigen (Rapid) - Final Laboratory Results 10/10/20 14:20: WBC 9.7, RBC 3.55 L, Hgb 11.5 L, Hct 33.2 L, MCV 93.5, MCH 32.4 H, MCHC 34.6, RDW Std Deviation 43.9, RDW Coeff of Sera 12.7, Plt Count 199, MPV 9.9, Immature Gran % (Auto) 0.500, Neut % (Auto) 76.0 H, Lymph % (Auto) 15.8 L, Coffee % (Auto) 6.9, Eos % (Auto) 0.4, Baso % (Auto) 0.4, Absolute Neuts (auto) 7.4, Absolute Lymphs (auto) 1.54, Nucleated RBC % 0 10/10/20 14:20: Blood Type B POSITIVE, Antibody Screen NEGATIVE Current Medications Acetaminophen (Acetaminophen 500 Mg Tablet) 1,000 mg PO Q8H PRN PRN PRN Reason: Pain Score 1-3 Bisacodyl (Bisacodyl 10 Mg Suppository) 10 mg RECTAL UD PRN PRN Reason: If no BM Dibucaine (Dibucaine 30 Gm Tube) 1 applic TOPICAL TID PRN PRN; Protocol PRN Reason: Discomfort Hydrocortisone (Hydrocortisone 2.5% Crm) 1 applic TOPICAL TID PRN PRN; Protocol PRN Reason: Discomfort Ibuprofen (Ibuprofen 600 Mg Tablet) 600 mg PO Q6H PRN PRN PRN Reason: Pain Score 1-3 Measles/Mumps/Rubella Vaccine Live (Measles,Mumps&Rubella Vaccine 0.5 Ml Vial) 0.5 ml SC .ONCE ONE Stop: 10/11/20 10:01 Last Admin: 10/10/20 19:17 Dose: Not Given Documented by: Methylergonovine Maleate (Methylergonovine 0.2 Mg/Ml Ampul) 0.2 mg IM X1 PRN PRN Reason: Excess bleeding/uterine atony Ondansetron HCl (Ondansetron 4 Mg/2 Ml Vial) 4 mg IV Q4H PRN PRN PRN Reason: Nausea Oxycodone HCl (Oxycodone 5 Mg Tablet) 5 - 10 mg PO Q4H PRN PRN PRN Reason: Pain Score 4-10 Senna/Docusate Sodium (Senna/Docusate Sodium 1 Tablet) 1 - 2 tablet PO DAILY PRN PRN PRN Reason: Constipation Simethicone (Simethicone 80 Mg Tablet) 80 mg PO PCHS PRN PRN Reason: Indigestion/Stomach pain Sodium Chloride (0.9% Saline Lock 10 Ml Syringe) 5 - 15 ml IV UD PRN PRN Reason: SALINE FLUSH Last Admin: 10/10/20 20:46 Dose: 10 ml Documented by: Zolpidem Tartrate (Zolpidem Tartrate 5 Mg Tablet) 5 mg PO QHS PRN PRN PRN Reason: Insomnia Medical Necessity - Tobacco Use Smoking Status: Never smoker Assessment/Plan day 1. Breast-feeding. Pain well controlled. Okay to discharge home today if okay to discharge home by rn oncology.
[2020-10-11] MEDS: Ibuprofen 600 MG Tablet PO ×2 (08:21→17:16)
--- NOTE | 2020-10-11 21:32 | NURSING ---
Mother discharged home with in carseat on lap. Mother and baby in wheelchair and wheeled [facility].
== END 2020-10-11 21:15 | disposition home or self-care (01) | DRG 807 ==
LOC: WPOUT 13:49 → WP 13:51 → WPOUT 13:55 → WP 13:55
PROVIDERS: Admitting Provider Obstetrics & Gynecology; Referring Provider Obstetrics & Gynecology; Visit Provider Obstetrics & Gynecology
DX: O99.02 Anemia complicating childbirth (principal); O73.0 Retained placenta without hemorrhage; Z3A.40 40 weeks gestation of pregnancy; Z37.0 Single live birth
CPT/HCPCS: 59025; 59050; 85025; 86850; 86900; 86901; 87426; 99218; J7120; A4216; G0378

== ENCOUNTER → 2020-11-20 | Outpatient (CLI) | payer SELFPAY ==
[2020-10-10 14:08] VITALS: BMI 28.8
[2020-11-23 16:44] LABS: HPV Reflexed? NOT INDICATED
== END | disposition home or self-care (01) ==
LOC: LABSPEC 13:24
PROVIDERS: Visit Provider Obstetrics & Gynecology
DX: Z12.4 Encounter for screening for malignant neoplasm of cervix (principal)
CPT/HCPCS: 88175; G0145

== ENCOUNTER → 2022-03-10 | Outpatient (CLI) | payer OTHER, SELFPAY ==
[2022-03-10 12:02] LABS: Absolute Lymphocyte Count 1.88 X10^3/uL (0.83-4.51); Absolute Neutrophil Count 4.8 X10^3/uL (2.0-7.7); Basophil# 0.04 X10^3/uL; Basophil% 0.5 % (0-1); Eosinophils% 1.4 % (0-5); Hematocrit 32.8 % (37-47); Hemoglobin 10.9 g/dL (12.0-15.0); Lymphocyte # 1.88 X10^3/ul (0.83-4.51); Lymphocyte % 25.5 % (19-41); Mean Corp Hgb Conc 33.2 g/dL (32-36); Mean Corpuscular Hgb 31.1 pg (27.0-32.0); Mean Corpuscular Volume 93.4 fL (81-99); Mean Platelet Vol. 9.8 fl (6.2-12.0); Monocyte# 0.55 X10^3/uL; Monocyte% 7.5 % (0-10); NRBC Flagged by Analyzer 0 % (0-5); Neutrophil # 4.78 X10^3/uL (2.7-7.7); Neutrophil % 64.7 % (47-70); Platelet Count 254 K/mm3 (150-450); RBC Distribution Width CV 12.5 % (11.6-14.6); RBC Distribution Width SD 42.7 fl (35.1-43.9); Red Blood Count 3.51 M/mm3 (4.2-5.4); White Blood Count 7.4 K/mm3 (4.4-11.0)
[2022-03-10 12:57] LABS: HIV - WCH Non-Reactive (Nonreactive); Hepatitis B Surface Antigen Non-Reactive (Nonreactive); Hepatitis C Antibody Non-Reactive (Nonreactive); Rubella IgG Non-Reactive (Nonreactive); Syphilis Antibodies Non-reactive
[2022-03-11 22:06] LABS: Chlamydia By Nucleic Acid AMP Negative (Negative)
[2022-03-12 12:16] LABS: Gonococcus By Nucleic Acid AMP Negative (Negative)
== END | disposition home or self-care (01) ==
PROVIDERS: Visit Provider Obstetrics & Gynecology
DX: Z34.81 Encounter for supervision of other normal pregnancy, first trimester (principal); Z11.3 Encounter for screening for infections with a predominantly sexual mode of transmission
CPT/HCPCS: 36415; 85025; 86703; 86762; 86780; 86803; 87086; 87340; 87491; 87591

== ENCOUNTER → 2022-06-17 | Outpatient (CLI) | payer OTHER, SELFPAY ==
[2022-06-17 09:52] LABS: Absolute Lymphocyte Count 1.83 X10^3/uL (0.83-4.51); Absolute Neutrophil Count 9.6 X10^3/uL (2.0-7.7); Basophil# 0.05 X10^3/uL; Basophil% 0.4 % (0-1); Eosinophil# 0.16 X10^3/uL; Eosinophils% 1.3 % (0-5); Hematocrit 32.7 % (37-47); Hemoglobin 10.8 g/dL (12.0-15.0); Lymphocyte # 1.83 X10^3/ul (0.83-4.51); Lymphocyte % 14.7 % (19-41); Mean Corpuscular Hgb 32.2 pg (27.0-32.0); Mean Corpuscular Volume 97.6 fL (81-99); Monocyte# 0.72 X10^3/uL; Monocyte% 5.8 % (0-10); NRBC Flagged by Analyzer 0 % (0-5); Neutrophil # 9.61 X10^3/uL (2.7-7.7); Neutrophil % 76.8 % (47-70); Platelet Count 230 K/mm3 (150-450); RBC Distribution Width CV 12.6 % (11.6-14.6); RBC Distribution Width SD 45.1 fl (35.1-43.9); Red Blood Count 3.35 M/mm3 (4.2-5.4); White Blood Count 12.5 K/mm3 (4.4-11.0)
[2022-06-17 09:57] LABS: Glucose Challenge Gest 1H 50g 91 mg/dL (70-140)
== END | disposition home or self-care (01) ==
LOC: WOBLAB 08:47
PROVIDERS: Visit Provider Obstetrics & Gynecology
DX: Z34.82 Encounter for supervision of other normal pregnancy, second trimester (principal)
CPT/HCPCS: 36415; 82950; 85025

== ENCOUNTER → 2022-08-25 | Outpatient (CLI) | payer OTHER, SELFPAY | END | disposition home or self-care (01) | LOC: LABSPEC 16:08 | PROVIDERS: Visit Provider Obstetrics & Gynecology | DX: Z36.85 Encounter for antenatal screening for Streptococcus B (principal) | CPT/HCPCS: 87081 ==

== ENCOUNTER 2022-09-17 00:10 | Inpatient (IN) | payer SELFPAY, OTHER ==
[2022-09-16 21:24] VITALS: TEMP 36.7
[2022-09-16 21:25] VITALS: BP 109/73; PULSE 84
[2022-09-16 21:29] VITALS: BMI 27.3
[2022-09-17] VITALS (19 sets, daily range): BP systolic 95–130; BP diastolic 54–73; PULSE 66–91; RESP 14–16; TEMP 36.2–37.5; O2SAT 95–99
[2022-09-17] MEDS: Lactated Ringers 1,000 ML 50 ML IV (00:40)
[2022-09-17 00:49] LABS: Absolute Lymphocyte Count 2.58 X10^3/uL (0.83-4.51); Absolute Neutrophil Count 6.8 X10^3/uL (2.0-7.7); Basophil# 0.06 X10^3/uL; Basophil% 0.6 % (0-1); Eosinophil# 0.09 X10^3/uL; Eosinophils% 0.9 % (0-5); Hematocrit 36.6 % (37-47); Hemoglobin 12.1 g/dL (12.0-15.0); Lymphocyte # 2.58 X10^3/ul (0.83-4.51); Lymphocyte % 24.7 % (19-41); Mean Corp Hgb Conc 33.1 g/dL (32-36); Mean Corpuscular Hgb 31.5 pg (27.0-32.0); Mean Corpuscular Volume 95.3 fL (81-99); Mean Platelet Vol. 10.6 fl (6.2-12.0); Monocyte# 0.85 X10^3/uL; Monocyte% 8.1 % (0-10); NRBC Flagged by Analyzer 0 % (0-5); Neutrophil # 6.79 X10^3/uL (2.7-7.7); Platelet Count 183 K/mm3 (150-450); RBC Distribution Width CV 12.7 % (11.6-14.6); RBC Distribution Width SD 44.2 fl (35.1-43.9); Red Blood Count 3.84 M/mm3 (4.2-5.4); White Blood Count 10.4 K/mm3 (4.4-11.0)
[2022-09-17] MEDS: Oxytocin 15 Units/NS 250ml 15 UNITS/250 ML IV.SOLN 2 UNITS IV (01:27)
[2022-09-17] MEDS: Oxytocin 15 Units/NS 250ml 15 UNITS/250 ML IV.SOLN 83 UNITS IV (05:00)
--- NOTE | 2022-09-17 05:26 | PCM.HP.BLA ---
History and Physical Date of Admission: 09/17/22 HPI: 32-year-old G5, P4 at 40/1 weeks, RILEY 09/16/2022 by LMP consistent with first trimester ultrasound, admitted for induction of labor for nonreassuring heart tones. Patient had arrived to labor and delivery for evaluation of contractions. Had 1 variable during assessment, therefore decision for induction of labor at term was made. Denies leaking of fluid, vaginal bleeding. Reports movement. Denies headache or vision changes, chest pain or shortness of breath, nausea or vomiting, diarrhea or constipation. complicated by: Nothing R PROGRAMMER history: G1. 40-week G2: 40-week G3: 41-week G4: 40-week G5: Current Medical history: Denies Medications: vitamin Surgeries: Denies Allergies: No known drug allergies Family history: Denies history of blood clots or bleeding disorders Social history: Denies tobacco, alcohol, drug use Review of system: Negative otherwise stated above Physical exam: Vital stable on admission General: In no acute distress, comfortable with contractions HEENT: Normocephalic/atraumatic, PERRLA Cardiorespiratory: Increased effort Abdomen: Soft, nontender, gravid Extremities: No edema Neurologic: Cranial nerves II through XII grossly intact, no focal deficits Musculoskeletal: Strength out of 5 throughout extremities Cervical exam: Per nursing 3.5cm on admission. 9 cm on assessment with AROM clear fluid this morning FHR: 130/mod gwen+accel/no decel [place]: q3-5 Assessment/plan: 32-year-old G5, P4 at 40/1 weeks, RI[place] 09/16/2022 by LMP consistent with first trimester ultrasound, admitted for induction of labor for nonreassuring heart tones. uncomplicated. ?Admit to labor and delivery for induction of labor with Pitocin. ?GBS negative Routine orders
--- NOTE | 2022-09-17 05:26 | EX.PCM.OBRPT ---
Vaginal Delivery Operative Information Date of Procedure: 09/17/22 Pre-Operative Diagnosis: Calvert intrauterine Post-Operative Diagnosis: [place] intrauterine Surgery / Procedure Performed: Spontaneous Vaginal Delivery Type of Anesthesia: None Estimated Blood Loss: 300cc Findings Description of Procedure: Spontaneous vaginal delivery of viable infant. Nuchal cord x1, loose, delivered through. Baby to mom. Cord clamped and cut. Spontaneous delivery of placenta. Right labial laceration, hemostatic without intervention. Infant A Gender: Male (1 minute): 9 (5 minute): 9
[2022-09-17] MEDS: Ibuprofen 600 MG Tablet PO ×3 (05:52→20:34)
[2022-09-17] MEDS: Acetaminophen 500 MG Tablet 1000 MG PO ×2 (10:32→17:21)
[2022-09-18 04:01] VITALS: BP 105/58; PULSE 77; RESP 16; TEMP 36.7
--- NOTE | 2022-09-18 07:29 | DCINST_ITS ---
Discharge Instructions Diet Discharge Diet: No restrictions Activity Discharge Activity: Return to Normal Activity, May Drive and May Shower May resume sexual activity in: 4-6 weeks Weight Bearing Status: Weight bearing as tolerated Dressing / Incision Call your doctor if your incision/area has: Continuous Slow Oozing and Foul Smelling Discharge Call your doctor if you observe: Fever of 101 or Higher, Shortness of breath and Chest pain Follow Up Care Please Follow Up With: Jose Mccarthy MD When: 4 to 6 weeks Test Results: Test results from this visit will be discussed in further detail at your follow- up appointment, if applicable. Discharge Plan Admission Admit Date/Time: 09/17/22 00:10 Attending Provider: Teri Mccarthy Discharge Orders/Prescriptions Prescriptions: No Action Prenatabs FA 1 TABLET tablet 1 tab PO DAILY Disposition Discharge Orders: Discharge Patient (Routine); Ordered 09/18/22 Ordered By: Dr. Jose Mccarthy
--- NOTE | 2022-09-18 07:29 | PN.OBGYN_ITS ---
Subjective Subjective No overnight complaints Objective Data Objective Data Vital Signs: Vital Signs Temp Pulse Resp BP Pulse Ox O2 Del Method 98.0 F 77 16 105/58 L 96 Room Air 09/18/22 04:01 09/18/22 04:01 09/18/22 04:01 09/18/22 04:01 09/17/22 17:17 09/18/22 04:01 Oxygen Delivery Method Room Air Weight: 149 lb 9.6 oz Body Mass Index (BMI) 27.3 Intake & Output: Intake and Output for Last 24 Hours 09/16/22 09/17/22 09/18/22 23:59 23:59 23:59 Intake Total 518.03 / 518.03 Balance 518.03 / 518.03 Lab / Micro Data Result Diagrams: 09/17/22 00:40 Physical Exam Const alert, oriented x3, no apparent distress, average body habitus, healthy appeari ng and well nourished HEENT normocephalic and moist oral mucous membranes Eyes PERRL Neck full ROM Resp normal respiratory effort, no retractions and no use of accessory muscles GI GI Narrative: Soft, nontender, uterus firm and below umbilicus Extremity normal to inspection, full ROM and no clubbing, cyanosis or edema Neuro moves all extremities and no focal motor deficits Psych mental status grossly normal, affect normal, speech normal and activity/motor behavior normal Assessment & Plan (1) Vaginal delivery: PLAN: day 1. Breast-feeding. 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
[2022-09-18] MEDS: Acetaminophen 500 MG Tablet 1000 MG PO (08:22)
[2022-09-18 10:54] VITALS: BP 100/66; PULSE 79; RESP 16; TEMP 36.4; O2SAT 98
[2022-09-18 13:30] VITALS: BP 105/68; PULSE 86; RESP 16; TEMP 36.2; O2SAT 98
== END 2022-09-18 14:00 | disposition home or self-care (01) | DRG 807 ==
LOC: WPOUT 00:19 → WP 00:19
PROVIDERS: Admitting Provider Student in an Organized Health Care Education/Training Program; Visit Provider Student in an Organized Health Care Education/Training Program
DX: O69.81X0 Labor and delivery complicated by cord around neck, without compression, not applicable or unspecified (principal); Z37.0 Single live birth; O70.0 First degree perineal laceration during delivery; Z3A.40 40 weeks gestation of pregnancy
CPT/HCPCS: 59025; 59050; 85025; 86850; 86900; 86901; 99218; J7120; G0378

== ENCOUNTER → 2023-08-03 | Outpatient (CLI) | payer SELFPAY ==
--- NOTE | 2023-08-03 11:08 | RAD_ITS ---
STUDY: X-RAY - LEFT HAND, ATTENTION FOURTH FINGER REASON FOR EXAM: Female, 32 years old. Injury TECHNIQUE: 3 view(s) of the finger were obtained. COMPARISON: None. FINDINGS: Normal metacarpal head. Normal metacarpophalangeal joint. Nondisplaced oblique fracture through the midshaft of the proximal phalanx of the fourth digit. Normal middle phalanx. Normal distal phalanx. Normal proximal interphalangeal joint. Normal distal interphalangeal joint. Soft tissue swelling. RAD/Finger(s) Min 2 Views IMPRESSION: Nondisplaced oblique fracture through the midportion of the proximal phalanx of the fourth digit with overlying soft tissue swelling. Electronically Signed: Pj Valles MD at 12:38 EST ,
== END | disposition home or self-care (01) ==
PROVIDERS: Referring Provider Physician Assistant; Visit Provider Physician Assistant
DX: S69.92XA Unspecified injury of left wrist, hand and finger(s), initial encounter (principal)
CPT/HCPCS: 73140

== ENCOUNTER 2023-09-10 16:04 | Emergency (ER) | payer OTHER, SELFPAY ==
[2023-09-10 16:05] VITALS: BP 121/74; PULSE 108; RESP 24; TEMP 37.7; O2SAT 99
--- NOTE | 2023-09-10 16:15 | EKG12_ITS ---
Test Reason : DYSPNEA/CHEST TIGHTNESS Blood Pressure : / mmHG Vent. Rate : 100 BPM Atrial Rate : 100 BPM P-R Int : 144 ms QRS Dur : 084 ms QT Int : 330 ms P-R-T Axes : 081 087 061 degrees QTc Int : 425 ms Normal sinus rhythm Possible Left atrial enlargement Borderline ECG Confirmed by FAID MENCHACA, DORITA ([id number]), editor index SANDRA WEAVER ([id number]) on 09/11/2023 2:00:38 PM Referred By: Confirmed By:DORITA APONTE MD
--- NOTE | 2023-09-10 17:40 | EDS_ITS ---
HPI History of Present Illness Chief Complaint: Shortness of Breath Narrative Narrative: 33-year-old female presenting with viral syndrome this week. Started on Thursday. She states her 2 children have similar symptoms. She notes that she has not been eating or drinking as much as usual and she is breast-feeding. She states she had fevers initially but these resolved. She is a mild cough which is nonproductive. She has mild shortness of breath. Patient states that she noticed that she is having spasms in her hands and tingling in her hands. She also feels perioral tingling. No history of anxiety [facility] Medical History Fracture of proximal phalanx of digit of left hand Home Medications NK 08/03/23 [History Last Taken Unknown] Allergy/AdvReac Type Severity Reaction Status Date / Time No Known Allergies Allergy Verified 09/10/23 16:07 Social History Smoking Status: Never smoker ROS ROS ED Constitutional Constitutional ED: Reports chills and fever(s) Eyes Eyes: Reports change in vision ENT ENT ED: Denies rhinorrhea Cardiovascular Cardiovascular: Denies chest pain Respiratory/Chest Respiratory/Chest: Reports cough and dyspnea Gastrointestinal Gastrointestinal: Denies abdominal pain, nausea or vomiting Genitourinary Genitourinary ED: Denies dysuria or hematuria Musculoskeletal Musculoskeletal: Reports myalgias and other Details: Spasms Neurologic Neurologic: Reports other Details: Tingling in fingertips EXAM Physical Exam Const Vital Signs: 09/10/23 16:05 Temperature 99.8 F H Temperature Source Temporal Pulse Rate 108 H Respiratory Rate 24 H Blood Pressure 121/74 H Blood Pressure Mean 89 Pulse Ox 99 Oxygen Delivery Method Room Air Positive well nourished General Appearance ED: Negative for pallor HEENT Reports moist mucous membranes atraumatic Eyes PERRL and EOMs intact bilaterally Resp normal respiratory effort and clear to auscultation bilaterally Auscultation: Negative for rales, rhonchi or wheezes Cardio regular rate and regular rhythm GI non-tender and non-distended Neuro oriented x3 and CN's II-XII intact bilaterally Sensorium / Orientation: alert Motor Exam: strength 5/5 throughout Psych mental status grossly normal Skin no wounds General Skin Exam: Negative for jaundice or pallor MDM MDM MDM Narrative Medical decision making narrative: Presenting with recent history of viral syndrome. She states clinically she feels better as far as the fever and chills and her cough is improving. She does admit to some shortness of breath. On examination her lungs are clear to auscultation. Initially she was tachycardic but heart was regular rate and rhythm on exam. Otherwise her physical exam is unremarkable. Patient relates a history of recent illness and states he is not eating and drinking very much. She also breast-feeding. She states that she has urinated only twice today and has not really had any fluids. Clinically the patient sounds a little dehydrated and we discussed increasing oral fluids and adding electrolyte drinks versus inserting an IV and checking lab work and electrolytes. After long dis cussion they opted to try to get fluids and electrolytes into her at home and they opted not to have an IV established or blood work done. I offered viral testing for COVID influenza but they declined this as well. I did deputy general counsel them if after hydration and electrolytes if they do not feel better that patient return to the ER for repeat evaluation. They are amenable to this. Discharged home in stable condition. Impression: 1. Viral syndrome 2. Dehydration Lab Data Attestation: I reviewed the patient's lab results. Discharge Plan Triage Chief Complaint: Shortness of Breath ED Provider: Jewel Steven Dx/Rx/DC Orders Instructions: ED Dehydration (Adult), ED Viral Syndrome (Adult) Prescriptions: No Action NK Primary Care Provider: Care Physician,No Primary Referrals: Care Physician,No Primary [Primary Care Provider] - Disposition Disposition: Home, Self Care
[2023-09-10 17:48] VITALS: BP 121/74; PULSE 108; RESP 24; TEMP 37.6; O2SAT 99
[2023-09-10 18:10] VITALS: PULSE 99; RESP 21; O2SAT 98
== END 2023-09-10 18:11 | disposition home or self-care (01) ==
LOC: ED 17:44
PROVIDERS: Emergency Provider Student in an Organized Health Care Education/Training Program; PCP Nurse Practitioner Family; Visit Provider Student in an Organized Health Care Education/Training Program
DX: B34.9 Viral infection, unspecified (principal); E86.0 Dehydration
CPT/HCPCS: 93005; 99282